=== PATIENT | male | born 1950 | race Caucasian/White ===

== ENCOUNTER → 2018-12-07 12:36 | Outpatient (CLI) | payer MEDICARE, BC ==
[2015-08-02 07:23] VITALS: BMI 30.7
[~2018-12-07 12:36] MED LIST: BAYER CHEWABLE81 MG PO; CARDURA2 MG PO; DELZICOL400 MG PO; DIFLUCAN50 MG PO; GEMFIBROZIL600 MG PO; GLUCOPHAGE500 MG PO; GLUCOTROL ER2.5 MG PO; K-TAB10 MEQ PO; LISINOPRIL10 MG GT; LISINOPRIL10 MG PO; LOPID600 MG PO; NEURONTIN 300300 MG PO; NORVASC5 MG PO; PENTASA 250 MG250 MG PO; PENTASA500 MG PO; PERCOCET 10/3251 TA1 PO; PLAVIX75 MG PO; PRAVACHOL20 MG PO; PROTONIX40 MG PO; TEFLARO 600 MG600 M1 IV; ULTRAM50 MG PO
--- NOTE | 2018-12-09 15:03 | EC ---
PATIENT:ROLLY NGUYEN DATE OF SERVICE: 12/07/18 SEX: M MEDICAL RECORD: [id number] DATE OF : 46 LOCATION:[facility] AGE OF PATIENT: 68 ADMISSION DATE: 12/07/18 REFERRING PHYSICIAN: INTERPRETING PHYSICIAN: MARCELA SIMMS MD ECHOCARDIOGRAM REPORT ECHO CHARGES 4 ECHO COMPLETE Date: 12/07/18 CLINICAL DIAGNOSIS: MCDONALD/FATIGUE/BRADYCARDIA H/O CAD ECHOCARDIOGRAPHIC MEASUREMENTS (adult normal given) AC root (d.<3.7cm) 3.4 cm LV Septum d (<1.2 cm> 1.6 cm Valve Excursion 2.1 cm LV Septum (systole) 2.2 cm Left Atria (s.<4.0cm> 4.3 cm LVPW d(<1.2cm) 1.4 cm RV (d.<2.3cm) 3.5 cm LVPW (sytole) 2.3 cm LV diastole(<5.6CM) 4.7 cm MV E-F(>70mm/sec) cm LV systole 2.2 cm LVOT Diameter 2.2 cm MV exc.(>10mm) cm Est.ejection fraction (50-75%) % DOPPLER: LVIT cm/sec A 49.0 cm/sec E 67.0 cm/sec LA cm/sec RVSP 25.3 mmHg LVOT 96.0 cm/sec AOP1/2T m/s Asc. Ao 123 cm/sec RVOT 48.0 cm/sec RA cm/sec PA 98.0 cm/sec AV Gradient Peak 6.1 mmHg AV Mean 2.8 mmHg AV Area 3.0 cm MV Gradient Peak 3.3 mmHg MV Mean 1.1 mmHg MV Area cm COMMENTS: OP - HC Aluminum Fabrication Supervisor: 1 ITZ PASCALOE Retail Advertising Executive: 1 Dr. Simms TAPE# PACS Pericardial Effusion N DATE OF SERVICE: 12/07/2018 ECHOCARDIOGRAM DATE OF SERVICE: 12/07/2018 FINDINGS: 1. Left ventricular chamber size is within normal limits. Left ventricular systolic function is normal. Overall ejection fraction estimated at 60%. 2. Left atrium, right atrium, and right ventricle chamber sizes are mildly ECHOCARDIOGRAM REPORT [id number] ROLLY NGUYEN dilated. Left atrium measures 4.3 cm. 3. Valvular structures have normal structure and motion. 4. Doppler interrogation reveals mild mitral regurgitation, trace tricuspid regurgitation, no other valvular insufficiency or stenosis. 5. No evidence of pericardial effusion or left ventricular thrombus. TRANSINT:[id number] Voice Confirmation ID: [id number] DOCUMENT ID: [id number] MARCELA SIMMS MD at 1503 CC: [id number] DICTATION DATE: 12/07/18 1557 FOUR SLIDE OPERATOR: 12/07/18 2307 DEP CLI 12/07/18 [place] [id number] [place] [id number]
== END | disposition home or self-care (01) ==
LOC: D.HCCARDIO 12:36
PROVIDERS: ATTEND Internal Medicine Interventional Cardiology
DX: R06.00 Dyspnea, unspecified (principal)

== ENCOUNTER → 2018-12-09 07:57 | Outpatient (CLI) | payer MEDICARE, BC ==
[2015-08-02 07:23] VITALS: BMI 30.7
--- NOTE | ~2018-12-09 | ST ---
PATIENT:ROLLY NGUYEN MEDICAL RECORD: [id number] SEX: M LOCATION:[facility] ORDER #: ADMISSION DATE: 12/09/18 AGE OF PATIENT: 68 REFERRING PHYSICIAN: INTERPRETING PHYSICIAN: MARCELA CONTRERAS MD DATE OF SERVICE: 12/09/2018 PROCEDURE: Nuclear stress test INDICATION: Angina and coronary artery disease, shortness of breath. The patient was exercised under standard Mateo protocol with 31 mCi of sestamibi injected at peak stress and 11 mCi used previously for rest images. FINDINGS: Gated SPECT reveals a preserved ejection fraction at 62% with good wall motioning and thickening and brightening throughout all segments. SPECT imaging Cardiolite was used as myocardial fusion agent. There is reversibility anteriorly. This includes the basal, mid, apical, anterior segments. The degree of reversibility is mild. The amount of myocardium involved is moderate. OVERALL IMPRESSION: This is an abnormal nuclear stress test. Reversible ischemia anteriorly. Gated SPECT reveals preserved ejection fraction greater than 60%. In this patient with ongoing symptomatology, the current scan does suggest the presence of hemodynamically significant coronary artery disease. We would proceed with coronary angiography as followup study. TRANSINT:[id number] Voice Confirmation ID: [id number] DOCUMENT ID: [id number] MARCELA CONTRERAS MD CC: MO DOHERTY [id number] DICTATION DATE: 12/09/18 1348 CHECKER CASHIER: 12/10/18 0409 DEP CLI 12/09/[address] [address]
== END | disposition home or self-care (01) ==
LOC: D.HCCARDIO 07:57
PROVIDERS: ATTEND Internal Medicine Interventional Cardiology
DX: I25.10 Atherosclerotic heart disease of native coronary artery without angina pectoris (principal); R06.09 Other forms of dyspnea; R53.83 Other fatigue

== ENCOUNTER 2018-12-23 10:13 | Outpatient (CLI) | payer MEDICARE, BC ==
[~2018-12-23] VITALS: Ht 177.8 cm; Wt 94.1 kg
--- NOTE | ~2018-12-23 | HEMODYNAMI ---
PATIENT:ROLLY NGUYEN MEDICAL RECORD: [id number] : 46 LOCATION:[facility] ADMISSION DATE: 12/23/18 Generatedon:12/23/201814:15 Patient name: ROLLY NGUYEN Patient #: [id number] SSN: DO B: 1950 Date of study: 12/23/2018 Page: Of Hemodynamic Procedure Report Patient Data Patient Demographics Procedure consent was obtained First Name: ROLLY Gender: Male Last Name: WENDY : 1950 Middle Initial: A Age: 68 year(s) Patient #: [id number] Race: Unknown Additional ID: [id number] Contact details Address: [address] [place] [address] State: [place] City: [facility] [place] Zip code: [address] Past Medical History Allergies: No known allergies Admission Admission Data Admission Date: 12/23/2018 Admission Time: 10:13 Height (in.): 70 BSA: 2.12 (m2) Height (cm.): 177.8 BMI: 29.84 (kg/m2) Weight (lbs.): 208 Weight (kg.): 94.35 Lab Results Lab Result Date: 12/23/2018 Lab Result Time: 0:00 Biochemistry Name Units Result Min Max BUN mg/dl 26 --(----)-* 7 18 Creatinine mg/dl 1.1 --(--*-)-- 0.6 1.3 CBC Name Units Result Min Max Hematocrit % 34.2 *-(----)-- 42 54 Hemoglobin g/dl 12.3 *-(----)-- 13.5 17.5 Procedure Procedure Types Cath Procedure Diagnostic Procedure [facility] w/Coronaries PCI Procedure Coronary Stent Coronary Stent Initial Procedure Description Procedure Date Procedure Date: 12/23/2018 Procedure Start Time: 14:00 Procedure End Time: 14:11 Procedure Staff Name Function Chad Simms MD Performing Physician Cyndi Mobley RT Monitor Morales Cavanaugh RT Scrub Angel Long RN Nurse Procedure Data Cath Procedure Fluoroscopy Diagnostic fluoroscopy Total fluoroscopy Time: 3.5 time: 3.5 min min Diagnostic fluoroscopy Total fluoroscopy dose: 618 dose: 618 mGy mGy Contrast Material Contrast Material Type Amount (ml) Isovue 300 67 Entry Location Entry Primary Successful Side Size Upsize Upsize Entry Closure Garcia ccessful Closure Location (Fr) 1 (Fr) 2 (Fr) Remarks Device Remarks Radial Right 6 Fr Mechanical artery Short Compression Estimated blood loss: 10 ml Diagnostic catheters Device Type Used For End Catheter Placement DIAGNOSTIC Sharon 110cm 5 Procedure Fr catheter ([id number]) Procedure Complications No complications Procedure Medications Medication Administration Route Dosage Oxygen etCO2 Nasal cannula 2 l/min Heparin Flush Bag added to field 2 bags (1000units/500ml NS) 0.9% NaCl I.V. 100 ml/hr Lidocaine 2% added to field 20 Radial Cocktail added to field 1 syringe (Verapomil 2mg/Nitro 400mcg/Heparin 1500units) Fentanyl I.V. 50 mcg Versed I.V. 1 mg Fentanyl I.V. 50 mcg Versed I.V. 1 mg Radial Cocktail I.A. 1 syringe (Verapomil 2mg/Nitro 400mcg/Heparin 1500units) Fentanyl I.V. 50 mcg Heparin Bolus I.V. 4000 units Integrilin (Bolus I.V. 8.5 ml 2mg/ml) Plavix P.O. 600 mg Hemodynamics Rest BSA: 2.12 (m2) HGB: 12.3 (g/dl) O2 Consumption: Estimated: 232.85 (ml/min) O2 Co nsumption indexed: Estimated:109.83 (ml/min/m) Heart Rate: 54 (bpm) Snapshots Pre Cath Intra NCS Post Cath Vital Signs Time Heart Resp SPO2 etCO2 NIBP (mmHg) Rhythm Pain Sedation Rate (ipm) (%) (mmHg) Status Level (bpm) 13:43:54 47 16 100 33.7 145/87(138) NSR 0 (11) 10(A) , No pain 13:48:08 55 16 95 29.2 153/80(127) NSR 0 (11) 10(A) , No pain 13:52:22 53 17 94 0.7 132/78(104) NSR 0 (11) 10(A) , No pain 13:57:13 50 17 96 0 125/73(112) NSR 0 (11) 10(A) , No pain 14:01:23 49 17 95 0 112/67(101) NSR 0 (11) 9(A) , No pain 14:05:29 55 17 90 0 116/67(92) NSR 0 (11) 9(A) , No pain 14:10:40 73 17 94 46.4 129/71(114) NSR 0 (11) 10(A) , No pain 14:12:41 63 17 94 44.2 131/71(109) NSR 0 (11) 10(A) , No pain Medications Time Medication Route Dose Verified Delivered Reason Not es Effectiveness by by 13:44:38 Oxygen etCO2 2 l/min Chad Ortiz Per physician Nasal Demi Long RN cannula 13:44:46 Heparin Flush added 2 bags Chad Ortiz used for Bag to Demi Long RN procedure (1000units/500ml field NS) 13:44:54 0.9% NaCl I.V. 100 Chad Ortiz Per physician ml/hr Demi Long RN 13:45:02 Lidocaine 2% added 20ml Chad Ortiz used for to vial Demi Long web site developer field 13:45:12 Radial Cocktail added 1 Chad Ortiz used for (Verapomil to syringe Demi Long RN procedure 2mg/Nitro field 400mcg/Heparin 1500units) 13:58:38 Fentanyl I.V. 50 mcg Chad Ortiz for sedation Demi Long RN 13:58:47 Versed I.V. 1 mg Chad Ortiz for sedation Demi Long RN 14:01:03 Fentanyl I.V. 50 mcg Chad Ortiz for sedation Demi Long RN 14:01:06 Versed I.V. 1 mg Chad Ortiz for sedation Demi Long RN 14:02:23 Radial Cocktail I.A. 1 Chad Bonilla for (Verapomil syringe Demi Simms MD vasodilation 2mg/Nitro 400mcg/Heparin 1500units) 14:05:18 Fentanyl I.V. 50 mcg Chad Ortiz for sedation Demi Long RN 14:08:37 Heparin Bolus I.V. 4000 Chad Ortiz for units Demi Long RN anticoagulation 14:08:48 Integrilin I.V. 8.5 ml Chad reed (Bolus 2mg/ml) Demi Long RN antiplatelet therapy 14:11:00 Plavix P.O. 600 mg Chad Long RN antiplatelet therapy Procedure Log Time Note 13:00:22 Signed procedure consent form obtained from patient. 13:00:23 Diagnostic Cath status Elective 13:00:24 Time tracking: Regular hours (M-F 7:00 - 5:00) 13:00:28 Plan of Care:Hemodynamics will remain stable., Cardiac rhythm will remain stable., Comfort level will be maintained., Respiratory function will remain adequate., Patient/ family verbilizes understanding of procedure., Procedure tolerated without complication., Recovers from procedure without complications.. 13:07:46 H&P Date Dictated: 12/01/2018 Within 30 days and on chart., H&P Addendum completed by physician on day of procedure. (MUST COMPLETE FOR ALL OUTPATIENTS). 13:08:17 Patient Weight : 208 lbs 13:08:45 Patient Height : 70 inches 13:20:15 Morales HOWELL(R) sent for patient. Start room use. 13:24:52 Patient allergic to No known allergies 13:35:43 Patient received from Pre/Post Procedure Room to CCL 2 Alert and oriented. Tansferred to table in Supine position. 13:35:44 Warm blankets applied, and sunita hugger turned on for patient comfort. 13:35:44 Correct patient and procedure confirmed by team. 13:35:45 ECG and BP/O2 sat monitors applied to patient. 13:42:40 Vital chart was started 13:44:38 Oxygen 2 l/min etCO2 Nasal cannula was administered by Angel Long RN; Per physician; 13:44:46 Heparin Flush Bag (1000units/500ml NS) 2 bags added to field was administered by Angel Long RN; used for procedure; 13:44:54 0.9% NaCl 100 ml/hr I.V. was administered by Angel Long RN; Per physician; 13:45:02 Lidocaine 2% 20ml vial added to field was administered by Angel Long RN; used for procedure; 13:45:12 Radial Cocktail (Verapomil 2mg/Nitro 400mcg/Heparin 1500units) 1 syringe added to field was administered by Angel Long RN; used for procedure; 13:45:53 Baseline sample Acquired. 13:45:55 Rhythm: sinus bradycardia 13:45:57 Full Disclosure recording started 13:45:57 Pre-procedure instructions explained to patient. 13:45:57 Pre-op teaching completed and patient verbalized understanding. 13:45:59 Family in patients room. 13:46:00 Patient NPO since Midnight. 13:46:01 Is patient on blood thinner?No 13:46:02 Patient diabetic? Yes. 13:46:03 If diabetic: On Metformin? Yes 13:46:05 If on Metformin: Last Dose? 12/21/2018 13:46:08 Previous problem with sedation/anesthesia? No ? 13:46:09 Snore? Yes 13:46:10 Sleep apnea? No 13:46:11 Deviated septum? No 13:46:12 Opens mouth fully? Yes 13:46:13 Sticks out tongue? Yes 13:46:14 Airway obstruction? No ? 13:46:16 Dentures? No ? 13:46:18 Pre procedure: right dorsailis pedis pulse 1+ Palpable, but thready & weak; easily obliterated 13:46:20 Modified Arron's test Ulnar < 7 seconds 13:46:22 Patient pain scale 0/10 ?. 13:46:27 IV patent on arrival in left antecubital with 0.9% NaCl at [facility]. 13:46:51 Lab Result : BUN 26 mg/dl 13:46:51 Lab Result : Creatinine 1.1 mg/dl 13:46:51 Lab Result : Hemoglobin 12.3 g/dl 13:46:51 Lab Result : Hematocrit 34.2 % 13:46:54 Lab results completed and on chart. 13:46:58 Right Radial & Right Groin area was prepped with chlora-prep and draped in sterile fashion 13:46:59 Alarms reviewed by R. N. 13:47:00 Sharps counted by scrub and verified by R.N. 13:47:06 Use device set Radial Dx or PCI 13:47:08 ACIST Syringe (58238) opened to sterile field. 13:47:09 Bag Decanter (2002S) opened to sterile field. 13:47:10 ACIST Hand Control (89596) opened to sterile field. 13:47:11 ACIST Manifold (39310) opened to sterile field. 13:47:11 Tegaderm 4 x 4 (1626W) opened to sterile field. 13:47:12 Medline Cath Pack (PSPH93323) opened to sterile field. 13:47:13 DIAGNOSTIC WIRE .035 260cm J wire (473117) opened to sterile field. 13:47:15 SHEATH 6FR Slender (18-8340) opened to sterile field. 13:47:17 MBrace Wrist Support ([id number]) opened to sterile field. 13:53:52 Zero performed for pressure channel P1 13:57:50 --------ALL STOP TIME OUT------ 13:57:50 Final Timeout: patient, procedure, and site verified with staff and physician. All members of the team are in agreement. 13:57:53 Right Radial & Right Groin site verified by team. 13:57:56 Maximum allowable Isovue 300 dose 300ml. Physician notified. (300ml for normal creatinines. For patients with creatinine of 1.7 or higher multiply weight(kg) x 5 divided by creatinine.) 13:58:00 Fire Safety Assessment: A--An alcohol-based skin anteseptic being used preoperatively., C--Open oxygen or nitrous oxide is being used., D--An ESU, laser, or fiber-optic light is being used. 13:58:02 Physical assessment completed. ASA score P 2 - A patient with mild systemic disease as per Chad Simms MD. 13:58:05 Sedation plan: IV Moderate Sedation Medication:Versed, Fentanyl 13:58:38 Fentanyl 50 mcg I.V. was administered by Angel Long RN; for sedation; 13:58:47 Versed 1 mg I.V. was administered by Angel Long RN; for sedation; 14:00:32 Procedure started. 14:00:40 Local anesthetic to right radial artery with Lidocaine 2% by Chad Simms MD.INITIAL ACCESS ONLY 14:00:56 A 6 Fr Short sheath was inserted into the Right Radial artery 14:01:03 Fentanyl 50 mcg I.V. was administered by Angel Long RN; for sedation; 14:01:06 Versed 1 mg I.V. was administered by Angel Long RN; for sedation; 14:01:57 A DIAGNOSTIC Sharon 110cm 5 Fr catheter (816932) was advanced over the wire and used for Procedure. 14:02:23 Radial Cocktail (Verapomil 2mg/Nitro 400mcg/Heparin 1500units) 1 syringe I.A. was administered by Chad Simms MD; for vasodilation; 14:02:45 LV gram done using SEE 14:02:48 Injector settings: Ml/sec: 7, Volume: 15, 14:03:10 EF : 55 % 14:04:20 RCA angiography performed. 14:04:22 Catheter exchanged over wire. 14:04:54 GUIDE 6FR XB 3.5 catheter ([id number]) opened to sterile field. 14:05:18 Fentanyl 50 mcg I.V. was administered by Angel Long RN; for sedation; 14:05:18 6 Fr XB 3.5 guide catheter was inserted over the wire 14:05:58 LCA angiography performed. 14:06:23 CHOICE PT Extra Support 182cm wire ([id number]) opened to sterile field. 14:06:24 INFLATOR Merit BasixCompak (YL5910) opened to sterile field. 14:07:09 CHOICE ES 182 wire advanced. 14:07:42 Wire advanced across lesion. 14:08:37 Heparin Bolus 4000 units I.V. was administered by Angel Long RN; for anticoagulation; 14:08:48 Integrilin (Bolus 2mg/ml) 8.5 ml I.V. was administered by Angel Long RN; for antiplatelet therapy; 14:08:55 Place stent Inflation Number: 1 A INTEGRITY RX 3.0 x 12 stent ([id number]) was prepped and advanced across the Mid LAD. The stent was deployed at 11 STEPHANIE for 0:10 (min:sec). 14:08:59 Stent catheter was removed intact over wire. 14:08:59 Wire removed. 14:09:00 Guide catheter removed. 14:09:13 Procedure ended.(Physican Out) 14:09:33 TR BAND Standard ([id number]) opened to sterile field. 14:09:42 Sheath removed intact; hemostasis achieved with Mechanical Compression to the Right Radial artery. 14:09:47 Fluoroscopy time 03.50 minutes. 14::50 Fluoroscopy dose: 618 mGy 14:09:50 Flurop Dose total: 618 14:09:53 Contrast amount:Isovue 300 67ml. 14:09:57 TR band inflated with 10cc of air. 14:10:00 Post-procedure physical assessment completed. ASA score P 2 - A patient with mild systemic disease as per Chad Simms MD. 14:10:02 Post procedure rhythm: sinus rhythm 14:10:04 Estimated blood loss: 10 ml 14:10:05 Post procedure instruction explained to patient.Patient verbalizes understanding. 14:10:05 Patient needs reinforcement of post procedure teaching. 14:10:20 Procedure type changed to Cath procedure, Diagnostic procedure, LHC, LHC w/Coronaries, PCI procedure, Coronary Stent, Coronary Stent Initial 14:11:00 Plavix 600 mg P.O. was administered by Angel Long RN; for antiplatelet therapy; 14:11:07 Procedure and supply charges have been captured, reviewed, submitted and are correct. 14:11:09 Procedure Complication : No complications 14:11:12 Vital chart was stopped 14:11:12 See physician's report for complete and final results. 14:11:15 Report given to Pre/Post Procedure Room. 14:11:17 Patient transfered to Pre/Post Procedure Room with Bed. 14:11:18 Procedure ended. 14:11:18 Full Disclosure recording stopped 14:11:23 End room use (Document Last) Intervention Summary Intervention Notes Time ActionType Lesion and Equipment Action# Pressure Duration Attributes Used 14:08:55 Place stent Mid LAD INTEGRITY RX 1 11 00:10 3.0 x 12 stent ([id number]) Device Usage Item Name Manufacture Quantity Catalog Number Hospital Part Current [facility] Lot# / Charge Number Stock Stock Serial# Code ACIST Acist 1 63349 524480 418673 875832 20 Syringe Medical (82355) Systems Inc Bag Decanter Microtek 1 2001S 810417 37134 140672 5 (2001S) Medical Inc. ACIST Hand Acist 1 00429 890033 663564 785513 5 Control Medical (83199) Systems Inc ACIST Acist 1 22542 299767 695844 971973 5 Manifold Medical (17047) Systems Inc Tegaderm 4 x 3M 1 1626W 366280 444985 545154 5 4 (1626W) Medline Cath Medline 1 [id number] 040133 67419 703648 5 Pack ([id number]) DIAGNOSTIC St Eric 1 339961 267453 190336 093730 30 WIRE .035 260cm J wire (744772) SHEATH 6FR Terumo 1 [id number] 569668 170434 077676 5 Slender (80-1060) MBrace Wrist Advanced 1 140-0250-00 870280 20041 109850 5 Support Vascular (418461559) Dynamics DIAGNOSTIC Terumo 1 40-5013 267072 075056 362764 5 Sharon 110cm 5 Fr catheter (861696) GUIDE 6FR XB Cardinal 1 [id number] 279420 367071 985242 2 3.5 catheter Health (70785551) CHOICE PT Stratton 1 [id number] 631821 297374 179772 5 Extra Scientific Support 182cm wire ([id number]) INFLATOR Merit 1 WL0471 486449 492258 889845 15 [facility] Medical BasixCompak (ZX7174) INTEGRITY RX Medtronic 1 [id number] 372405 704584 971193 5 [id number] 3.0 x 12 stent ([id number]) TR BAND Terumo 1 [id number] 199485 471468 475320 40 Standard ([id number]) Signature Audit [place] Stage Time Signature Unsigned Intra-Procedure 12/23/2018 Cyndi Mobley 2:15:40 PM RT(R) Signatures Monitor : Cyndi Mobley Signature : RT Date : Time : [facility] [address] [place] [address]
[2018-12-23 10:45] VITALS: BP 133/66; Ht 177.8 cm; Wt 94.1 kg
[2018-12-23 11:00] LABS: CALCIUM 9.1 mg/dL (8.5-10.1); CARBON DIOXIDE 28.1 mmol/L (21.0-32.0); CREATININE - SERUM 1.1 mg/dL (0.6-1.3); POTASSIUM - SERUM 4.1 mmol/L (3.5-5.1)
[2018-12-23 12:29] LABS: BASOPHILS 0.3 % (0-2); EOSINOPHILS 4.9 % (0-7); HEMATOCRIT 34.2 % (42.0-54.0); HEMOGLOBIN 12.3 g/dL (13.5-17.5); IMMATURE GRANULOCYTES 0.3 % (0-5); LYMPHOCYTES 29.9 % (15-50); MCH 34.5 pg (26.0-34.0); MCV 95.8 fL (80.0-100.0); MEAN PLATELET VOLUME 11.1 fL (7.4-10.4); MONOCYTES 10.8 % (2-11); NEUTROPHILS 53.8 % (40-80); PLATELET COUNT 277 10x3/uL (130-400); RBC 3.57 10x6/uL (4.20-6.10); RDW 14.7 % (11.5-14.5); WBC 5.7 10x3/uL (4.8-10.8)
--- NOTE | 2018-12-23 14:30 | NUR ---
PT RECEIVED VIA STRETCHER FROM BEREAVEMENT COUNSELOR FOR RECOVERY. PT DROWSY BUT AWAKE, TR BAND AND IMMOBILIZER TO R WRIST, DRESSING CDI NO BLEEDING OR HEMATOMA NOTED. CAP REFILL BRISK. HR NSR RATE 60, BP 127/66, 02 SAT 96 PLACED ON 2L O2 VIA NC. PT DENIES PAIN OR DISCOMFORT. CALL LIGHT IN REACH, AT BEDSIDE. IV PATENT INFUSING VIA ORDERS.
[2018-12-23] MEDS ORDERED: PLAVIX75 MG PO (14:36)
[2018-12-23] MEDS ORDERED: BAYER CHEWABLE81 MG PO (14:36)
--- NOTE | 2018-12-23 14:45 | NUR ---
PT RESTING COMFORTABLY, TR BAND IN PLACE, DRESSING CDI NO BLEEDING OR HEMATOMA NOTED. ARM PINK AND WARM, CAP REFILL BRISK. VSS. PT DENIES PAIN OR NEEDS. CALL LIGHT IN REACH, AT BEDSIDE.
--- NOTE | 2018-12-23 15:15 | NUR ---
PT RESTING COMFORTABLY, DENIES PAIN OR NEEDS. TR BAND IN PLACE, DRESSING CDI NO BLEEDING OR SWELLING NOTED. PT DENIES NEEDS. CALL LIGHT IN REACH. AT BEDSIDE
--- NOTE | 2018-12-23 15:40 | NUR ---
HOB ELEVATED, SANDWICH AND DRINK SERVED. R WRIST DRESSING REMAINS CDI NO BLEEDING OR SWELLING NOTED. VSS, CALL LIGHT IN REACH. DENIES PAIN OR ANY OTHER NEEDS AT THIS TIME
--- NOTE | 2018-12-23 16:14 | NUR ---
PT SITTING UP, DENIES PAIN OR NEEDS. TR BAND IN PLACE DRESSING CDI NO BLEEDING OR SWELLING NOTED. VSS. O2 REMOVED. CALL LIGHT IN REACH, AT BEDSIDE.
--- NOTE | 2018-12-23 16:47 | NUR ---
PT RESTING COMFORTABLY, TR BAND IN PLACE, DRESSING CDI NO BLEEDING OR SWELLING NOTED. VSS. CALL LIGHT IN REACH. DENIES PAIN OR NEEDS AT THIS TIME
--- NOTE | 2018-12-23 17:17 | NUR ---
3 CC AIR REMOVED FROM TR BAND. NO BLEEDING OR SWELLING NOTED. PT DENIES AND NEEDS. VSS. CALL LIGHT IN REACH
--- NOTE | 2018-12-23 17:41 | NUR ---
3 ADD'L CC OF AIR REMOVED FROM TR BAND. NO BLEEDING OR SWELLING NOTED. ARM PINK WARM, CAP REFILL BRISK. DENIES PAIN OR NEEDS. AT BEDSIDE.
--- NOTE | 2018-12-23 18:01 | NUR ---
2 MORE CC AIR REMOVED FROM TR BAND, IV REMOVED W CATH INTACT, MONITORS REMOVED. PT UP TO DRESS FOR DISCHARGE.
--- NOTE | 2018-12-23 18:16 | NUR ---
PT AMBULATED TO , VOIDING W/O DIFFICULITY. TR BAND AND REMAINING AIR REMOVED, NO BLEEDING OR SWELLING NOTED. 2X2 AND TEGADREM DRESSING APPLIED. IMMOBILIZER RE APPLIED. PT DISCHARGED VIA WC TO PRIVATE VEHICLE WITH ALL BELONGINGS.
--- NOTE | 2018-12-28 14:38 | OP ---
PATIENT NAME: ROLLY NGUYEN MEDICAL RECORD: [id number] :46 LOCATION:[facility] ADMISSION DATE: SURGEON: MARCELA CONTRERAS MD DATE OF OPERATION: 12/23/2018 PROCEDURES: 1. PTCA stent LAD. 2. Left heart catheterization. 3. Selective coronary angiography. 4. Left ventriculogram. INDICATION: Angina and coronary artery disease. PROCEDURE IN DETAIL: After informed consent was obtained and after a detailed description of risks, benefits as well as alternative therapies, the patient elected to proceed with angiogram and angioplasty. FINDINGS: Left ventriculogram was performed in a standard 30-degree SEE view, reveals good cardiac wall motion throughout all segments. Overall ejection fraction estimated 60%. SELECTIVE CORONARY ANGIOGRAPHY: 1. Left main has no significant angiographic disease. 2. Left anterior descending has 75% stenosis in the mid vessel. 3. Left circumflex has mild irregularities, but no flow-limiting stenosis. 4. Right coronary has mild irregularities, but no flow-limiting stenosis. PTCA STENT OF THE LAD: The stent used was a 3.0 x 12 mm Integrity. Result was 0% residual stenosis. OVERALL IMPRESSION: Successful PTCA stent of the LAD going from 75% initial stenosis to 0% residual. TRANSINT:[id number] Voice Confirmation ID: [id number] DOCUMENT ID: [id number] MARCELA CONTRERAS MD at 1438 CC: [id number] DICTATION DATE: 12/23/18 1414 OPTICAL GOODS DRILLING MACHINE OPERATOR: 12/23/18 1522 DEP CLI 12/23/18 [place] [id number]
== END 2018-12-23 18:15 | disposition home or self-care (01) ==
LOC: D.CATH 10:13
PROVIDERS: ATTEND Internal Medicine Interventional Cardiology
DX: I25.119 Atherosclerotic heart disease of native coronary artery with unspecified angina pectoris (principal); Z01.812 Encounter for preprocedural laboratory examination

== ENCOUNTER → 2019-09-20 09:15 | Outpatient (CLI) | payer MEDICARE, BC ==
[2018-12-23 10:45] VITALS: BMI 29.7
== END | disposition home or self-care (01) ==
LOC: D.CT 09:15
PROVIDERS: ATTEND Surgery
DX: K40.90 Unilateral inguinal hernia, without obstruction or gangrene, not specified as recurrent (principal); T83.490D Other mechanical complication of implanted penile prosthesis, subsequent encounter

== ENCOUNTER 2019-10-28 21:42 | Inpatient (IN) | payer MEDICARE, BC ==
[~2019-10-28] VITALS: Ht 177.8 cm; Wt 93.0 kg
[2019-10-28] MEDS ORDERED: LISINOPRIL10 MG PO (22:12)
[2019-10-28 22:50] LABS: BASOPHILS 0 % (0-2); EOSINOPHILS 0.5 % (0-7); HEMOGLOBIN 10.6 g/dL (13.5-17.5); IMMATURE GRANULOCYTES 0.2 % (0-5); LYMPHOCYTES 16.5 % (15-50); MCH 48.8 pg (26.0-34.0); MCHC 47.1 g/dL (31.0-37.0); MCV 103.7 fL (80.0-100.0); MEAN PLATELET VOLUME 10.1 fL (7.4-10.4); MONOCYTES 1.9 % (2-11); NEUTROPHILS 80.9 % (40-80); PLATELET COUNT 314 10x3/uL (130-400); RBC 2.17 10x6/uL (4.20-6.10); RDW 17.4 % (11.5-14.5); WBC 6.4 10x3/uL (4.8-10.8)
[2019-10-28 22:51] LABS: HEMATOCRIT 32.5 % (42.0-54.0)
[2019-10-28 22:58] LABS: ANION GAP 13.1 mmol/L (8-16); CALCIUM 8.9 mg/dL (8.5-10.1); CARBON DIOXIDE 26.6 mmol/L (21.0-32.0); CREATININE - SERUM 1.5 mg/dL (0.6-1.3); POTASSIUM - SERUM 3.7 mmol/L (3.5-5.1)
--- NOTE | 2019-10-28 23:03 | NUR ---
PT LEFT ED VIA STRETCHER FOR CT.
[2019-10-28 23:05] LABS: ALBUMIN 3.1 g/dL (3.4-5.0); BILIRUBIN - TOTAL 0.58 mg/dL (0.2-1.3); PROTEIN - SERUM 7.3 g/dL (6.4-8.2)
--- NOTE | 2019-10-28 23:05 | NUR ---
URINE SPECIMEN SENT TO LAB
[2019-10-28 23:12] LABS: GLUCOSE NEGATIVE (NEGATIVE); KETONE NEGATIVE (NEGATIVE); NITRITE NEGATIVE (NEGATIVE)
[2019-10-28 23:13] LABS: BILIRUBIN NEGATIVE (NEGATIVE); UROBILINOGEN NORMAL (NORMAL)
--- NOTE | 2019-10-28 23:19 | NUR ---
PT RETURNED FROM CT VIA STRETCHER.
--- NOTE | 2019-10-29 00:30 | NUR ---
PT RESTING ON BED. PT DENIES PAIN WHEN IN A CERTAIN POSITION. PT REPORTS INCREASED PAIN WITH MOVEMENT.
[2019-10-29] MEDS ORDERED: FOLIC ACID1 MG PO (02:03)
[2019-10-29] MEDS ORDERED: METHOTREXATE2.5 MG PO (02:04)
[2019-10-29] MEDS ORDERED: PREDNISONE1 MG PO (02:05)
[2019-10-29] MEDS ORDERED: VITAMIN D10000 UNI1 PO (02:07)
--- NOTE | 2019-10-29 02:57 | NUR ---
RECEIVED TO ROOM FROM ER. ALERT,ORIENTED. NO COMPLAINTS AT PRESENT. IV TO RAC INTACT WITHOUT REDNESS OR EDEMA NOTED. ORIENTED TO ROOM.CL IN REACH
[2019-10-29 03:00] VITALS: BP 96/56; BMI 29.4
[2019-10-29 04:00] VITALS: BP 96/56
--- NOTE | 2019-10-29 07:21 | NUR ---
PT RESTING IN BED WITH EYES CLOSED. RESPIRATIONS ARE EVEN AND UNLABORED. PT IS EASILY AROUSED WITH VERBAL STIMULATION. PT IS AAO X 4 UPON AROUSAL. T REPORTS LSIGHT PAIN TO HERNIATED AREA TO LLQ. BS HYPOACTIVE X 4. PT DENIES PRESENCE OF N/V/DYSPNEA AT THIS TIME. PT SPOUSE AT BEDSIDE. BED IS IN THE LOWEST POSITION. CALL LIGHT AND BEDSIDE TABLE ARE WITHIN REACH. SIDE RAILS X 2. PT DENIES FURTHER NEEDS. WILL CONT TO MONITOR.
--- NOTE | 2019-10-29 07:40 | NUR ---
DR OLIVEIRA CALLED TO NOTIFY OF SURGERY CANCELLATION DUE TO PT NEEDING BOWEL PREP. TELEPHONE ORDERS RECD ARE TO START GOLYTELY NOW AND CAN HAVE CLEAR LIQUID DIET. PT TO BE NPO AFTER MIDNIGHT AND HAVE PLANNED PROCEDURE ON 10/30/2019. MANAGER READING NOTIFIED OF CANCELLED SURGERY. WILL PLACE ORDERS.
[2019-10-29 08:12] VITALS: BP 106/53
[2019-10-29 12:02] VITALS: BP 121/56
[2019-10-29 16:19] VITALS: BP 119/57
[2019-10-29 20:00] VITALS: BP 114/48
--- NOTE | 2019-10-29 20:00 | NUR ---
LYING QUEITLY WITH NO COMPLAINTS VOCIED. RESP EVEN AND UNALBORED. NO DISTESS NOTED. CL IN REACH
[2019-10-30] VITALS: BP 117/59
--- NOTE | 2019-10-30 01:28 | NUR ---
TEMP VITAL PLACED BY THIS NURSE IN ERROR, DISREGARD.
--- NOTE | 2019-10-30 02:07 | NUR ---
I have reviewed this patient and I concur with the Shift Assessment completed by the Licensed Practical Nurse today this shift.
--- NOTE | 2019-10-30 02:09 | NUR ---
I have reviewed this patient and I concur with the Shift Assessment completed by the Licensed Practical Nurse today this shift.
[2019-10-30 04:00] VITALS: BP 102/61
[2019-10-30 08:23] VITALS: BP 128/57
[2019-10-30 12:18] VITALS: BP 125/81
[2019-10-30 12:33] VITALS: Ht 177.8 cm; Wt 93.0 kg
[2019-10-30] MEDS ORDERED: LEVOFLOXACIN500 MG PO (13:58)
[2019-10-30] MEDS ORDERED: FLAGYL500 MG PO (13:59)
--- NOTE | 2019-10-30 15:15 | MORECARE ---
CASE MANAGEMENT DISCHARGE SUMMARY PATIENT: ROLLY NGUYEN UNIT: [id number] ADM DATE: 10/29/19 AGE: 69 : 48 SEX: M ROOM/BED: D.2205 AUTHOR: MARY COLON PHYSICIAN: REFERRING PHYSICIAN: ANATOLIY OLIVEIRA MD DATE OF SERVICE: 10/30/19 Discharge Plan Patient Name: ROLLY NGUYEN [facility] 1950 Planned Disposition: Home or Self Care Anticipated Discharge Date: Discharge Date: Expected LOS: Initial Reviewer: [email or web address] Initial Review Date: 10/29/2019 Generated: 10/30/19 4:14 pm DCPIA - Discharge Planning Initial Assessment Updated by [email or web address]: Vicky Rasmussen on 10/30/19 3:10 pm * Is the patient Alert and Oriented? Yes * How many steps to enter\exit or inside your home? * PCP NICARAGUAN * Pharmacy [facility] * Preadmission Environment Home with Family * ADLs Independent * Equipment None * List name and contact numbers for known caregivers / representatives who currently or will assist patient after discharge: JACK * Verbal permission to speak to the caregivers and representatives has been obtained from the patient. Yes * Community resources currently utilized None * Additional services required to return to the preadmission environment? No * Can the patient safely return to the preadmission environment? Yes * Has this patient been hospitalized within the prior 30 days at any hospital? No Patient Name: ROLLY NGUYEN Page 17955 at 1515 All edits/amendments must be made on the electronic document DICTATION DATE: 10/30/19 1514 DATA OPERATIONS DIRECTOR: FARHANA 10/30/19 1514 RPT#: [id number] DC DATE: STATUS: ADM IN [facility] [address] [place] [address] END OF REPORT
--- NOTE | 2019-10-30 15:25 | MORECARE ---
CASE MANAGEMENT DISCHARGE SUMMARY PATIENT: ROLLY NGUYEN UNIT: [id number] ADM DATE: 10/29/19 AGE: 69 : 48 SEX: M ROOM/BED: D.2205 AUTHOR: DARLENEDOC PHYSICIAN: REFERRING PHYSICIAN: ANATOLIY OLIVEIRA MD DATE OF SERVICE: 10/30/19 Discharge Plan Patient Name: ROLLY NGUYEN Facility: [facility]:[place] : 1950 Planned Disposition: Home or Self Care Anticipated Discharge Date: Discharge Date: Expected LOS: Initial Reviewer: [email or web address] Initial Review Date: 10/29/2019 Generated: 10/30/19 4:25 pm Comments DCP- Discharge Planning Updated by [email or web address]: Vicky Rasmussen on 10/30/19 2:[address] Patient Name: ROLLY NGUYEN Admission Status: ER Accout number: [id number] Admission Date: 10-29-2019 : 1950 Admission Diagnosis: Attending: ANATOLIY OLIVEIRA Current LOS: 1 Anticipated DC Date: Planned Disposition: Home or Self Care Primary Insurance: MEDICARE A & B Discharge Planning Comments: CM met with patient to complete initial dc planning assessment. CM educated patient on the CM role and verbal consent given by patient to complete assessment. Patient lives at home with his spouse where he is independent with his care. At discharge patient plans to return home and feels this is a safe discharge. CM discussed availability of home health, rehab services, and medical equipment. Patient denied known discharge needs at this time. CM will continue to follow and will assist as needed with dc plans/needs. Curtain Worker: Vicky Rasmussen DCPIA - Discharge Planning Initial Assessment Updated by [email or web address]: Vicky Rasmussen on 10/30/19 3:10 pm * Is the patient Alert and Oriented? Yes * How many steps to enter\exit or inside your home? * PCP LITHUANIAN * Pharmacy [facility] * Preadmission Environment Home with Family * ADLs Independent * Equipment None * List name and contact numbers for known caregivers / representatives who currently or will assist patient after discharge: JACK * Verbal permission to speak to the caregivers and representatives has been obtained from the patient. Yes * Community resources currently utilized None * Additional services required to return to the preadmission environment? No * Can the patient safely return to the preadmission environment? Yes * Has this patient been hospitalized within the prior 30 days at any hospital? No Last DP export: 10/30/19 2:15 p Patient Name: ROLLY NGUYEN Page 39726 at 1525 All edits/amendments must be made on the electronic document DICTATION DATE: 10/30/191524 MEAT BONER AND SLICER: FARHANA 10/30/191524 RPT#: [id number] DC DATE: STATUS: ADM IN [address] [place] [address] END OF REPORT
--- NOTE | 2019-10-30 15:30 | NUR ---
PATIENT RECIEVED DISCHARGE INSTRUCTIONS. VERBALIZED UNDERSTANDING. NO QUESTIONS AT THIS TIME. EXPLAINED MEDS ARE SENT TO [facility] [place]. VERBALIZED UNDERSTANDING. IV REMOVED WITH CATH TIP INTACT. CALL LIGHT WITHIN REACH.
--- NOTE | 2019-10-30 15:48 | NUR ---
PATIENT ESCORTED DOWN TO PRIVATE VEHICLE WITH PERSONAL BELONGINGS AT THIS TIME.
--- NOTE | 2019-10-31 12:17 | MORECARE ---
CASE MANAGEMENT DISCHARGE SUMMARY PATIENT: ROLLY NGUYEN UNIT: [id number] ADM DATE: 10/29/19 AGE: 69 : 48 SEX: M ROOM/BED: D.2205 AUTHOR: DARLENEDOC PHYSICIAN: REFERRING PHYSICIAN: ANATOLIY OLIVEIRA MD DATE OF SERVICE: 10/31/19 Discharge Plan Patient Name: ROLLY NGUYEN Facility: [facility]:[place] : 1950 Planned Disposition: Home or Self Care Anticipated Discharge Date: Discharge Date: 10/30/2019 Expected LOS: 0 Initial Reviewer: [email or web address] Initial Review Date: 10/29/2019 Generated: 10/31/19 1:16 pm Comments DCP- Discharge Planning Updated by [email or web address]: Vicky Rasmussen on 10/30/19 2:[address] Patient Name: ROLLY NGUYEN Admission Status: ER Accout number: [id number] Admission Date: 10-29-2019 : 1950 Admission Diagnosis: Attending: ANATOLIY OLIVEIRA Current LOS: 1 Anticipated DC Date: Planned Disposition: Home or Self Care Primary Insurance: MEDICARE A & B Discharge Planning Comments: CM met with patient to complete initial dc planning assessment. CM educated patient on the CM role and verbal consent given by patient to complete assessment. Patient lives at home with his spouse where he is independent with his care. At discharge patient plans to return home and feels this is a safe discharge. CM discussed availability of home health, rehab services, and medical equipment. Patient denied known discharge needs at this time. CM will continue to follow and will assist as needed with dc plans/needs. Surveillance Systems Engineer: Vicky Rasmussen DCPIA - Discharge Planning Initial Assessment Updated by [id number]: Vicky Rasmussen on 10/30/19 3:10 pm * Is the patient Alert and Oriented? Yes * How many steps to enter\exit or inside your home? * PCP UZBEK * Pharmacy [facility] * Preadmission Environment Home with Family * ADLs Independent * Equipment None * List name and contact numbers for known caregivers / representatives who currently or will assist patient after discharge: JACK * Verbal permission to speak to the caregivers and representatives has been obtained from the patient. Yes * Community resources currently utilized None * Additional services required to return to the preadmission environment? No * Can the patient safely return to the preadmission environment? Yes * Has this patient been hospitalized within the prior 30 days at any hospital? No Last DP export: 10/30/19 2:25 p Patient Name: ROLLY NGUYEN Page 82487 at 1217 All edits/amendments must be made on the electronic document DICTATION DATE: 10/31/191215 RIDING SILKS CUSTODIAN: FARHANA 10/31/19 1216 RPT#: [id number] DC DATE:10/30/19 STATUS: DIS IN [facility] [address] [place] [address] END OF REPORT
== END 2019-10-30 15:49 | disposition home or self-care (01) | DRG 395 ==
LOC: D.ER 21:42 → D.MS 10-29 00:21
PROVIDERS: Emergency Medicine; ADMIT Surgery; ATTEND Surgery
DX: K63.89 Other specified diseases of intestine (principal); K40.90 Unilateral inguinal hernia, without obstruction or gangrene, not specified as recurrent; E11.9 Type 2 diabetes mellitus without complications; I10 Essential (primary) hypertension; K21.9 Gastro-esophageal reflux disease without esophagitis

== ENCOUNTER 2019-11-29 08:00 | Outpatient (CLI) | payer MEDICARE, BC ==
[2019-10-30 12:33] VITALS: Wt 93.0 kg
[~2019-11-29 08:00] MED LIST changes: +FLAGYL500 MG PO; +FOLIC ACID1 MG PO; +LEVOFLOXACIN500 MG PO; +METHOTREXATE2.5 MG PO; +PREDNISONE1 MG PO; +VITAMIN D10000 UNI1 PO
[2019-11-29 10:24] LABS: BASOPHILS 0 % (0-2); HEMATOCRIT 32.6 % (42.0-54.0); HEMOGLOBIN 11.5 g/dL (13.5-17.5); IMMATURE GRANULOCYTES 0.6 % (0-5); LYMPHOCYTES 26.3 % (15-50); MCH 35.2 pg (26.0-34.0); MCHC 35.3 g/dL (31.0-37.0); MCV 99.7 fL (80.0-100.0); MEAN PLATELET VOLUME 9.7 fL (7.4-10.4); MONOCYTES 17.1 % (2-11); RBC 3.27 10x6/uL (4.20-6.10); RDW 14.5 % (11.5-14.5); WBC 3.2 10x3/uL (4.8-10.8)
[2019-11-29 10:29] LABS: ANION GAP 10.7 mmol/L (8-16); CALCIUM 8.7 mg/dL (8.5-10.1); CARBON DIOXIDE 29.1 mmol/L (21.0-32.0); CREATININE - SERUM 1.2 mg/dL (0.6-1.3); POTASSIUM - SERUM 3.8 mmol/L (3.5-5.1)
[2019-11-29 10:37] LABS: PLATELET COUNT 206 10x3/uL (130-400)
== END 2019-11-29 08:01 | disposition home or self-care (01) ==
LOC: D.OPS 08:00 → EDSTATUS 12-01 07:30 → D.PAN 12-01 07:30 → D.OPS 12-01 08:20
PROVIDERS: ATTEND Surgery
DX: K40.41 Unilateral inguinal hernia, with gangrene, recurrent (principal); I10 Essential (primary) hypertension; I25.119 Atherosclerotic heart disease of native coronary artery with unspecified angina pectoris

== ENCOUNTER 2020-01-05 05:28 | Day surgery (SDC) | payer MEDICARE, BC ==
[~2020-01-05] VITALS: Ht 177.8 cm; Wt 93.2 kg
[2020-01-05 06:17] LABS: ANION GAP 11.4 mmol/L (8-16); CALCIUM 8.8 mg/dL (8.5-10.1); CARBON DIOXIDE 26.4 mmol/L (21.0-32.0); CREATININE - SERUM 1.1 mg/dL (0.6-1.3); POTASSIUM - SERUM 3.8 mmol/L (3.5-5.1)
[2020-01-05 06:27] VITALS: BP 128/73; Ht 177.8 cm; Wt 93.2 kg
[2020-01-05 07:24] LABS: HEMATOCRIT 34.1 % (42.0-54.0); HEMOGLOBIN 11.6 g/dL (13.5-17.5); MCH 34.2 pg (26.0-34.0); MCV 100.6 fL (80.0-100.0); MEAN PLATELET VOLUME 10.5 fL (7.4-10.4); RBC 3.39 10x6/uL (4.20-6.10); RDW 15.2 % (11.5-14.5); WBC 5.2 10x3/uL (4.8-10.8)
[2020-01-05 07:26] LABS: PLATELET COUNT 258 10x3/uL (130-400)
[2020-01-05] MEDS ORDERED: HYDROCODON-ACE1 EA10 PO (08:54)
--- NOTE | 2020-01-05 09:17 | NUR ---
ICE APPLIED TO INCISION SITE FOR DISCOMFORT. REPOSITIONED PT UP IN BED.
--- NOTE | 2020-01-05 10:06 | NUR ---
FULL LIQUID TRAY TO ROOM.
[2020-01-05 10:47] LABS: EOSINOPHILS 9 % (0-7); LYMPHOCYTES 24 % (15-50); MONOCYTES 6 % (2-11); NEUTROPHILS 61 % (40-80); PLATELET ESTIMATE NORMAL
[2020-01-05 10:48] LABS: ROULEAUX OCC
--- NOTE | 2020-01-05 11:20 | NUR ---
1030-TOLERATED TRAY. VSS. NO COMPLAINTS. PT IS UNABLE TO VOID AT THIS TIME
--- NOTE | 2020-01-05 11:21 | NUR ---
1115-NO CHANGES.VSS. CONTINUE TO WAIT ON PT TO VOID FOR DISCHARGE CRITERIA TO BE MET. ABD SOFT, NON DISTENDED. IV WITH FLUIDS AT KVO. DRINKING ICE WATER. DRESSING CDI
--- NOTE | 2020-01-05 11:34 | NUR ---
1125-ASSISTED PT TO RESTROOM. SITTING ON TOILET. CL IN EASY REACH.VSS.
--- NOTE | 2020-01-05 13:39 | NUR ---
1150-DISCHARGE CRITERIA MET.REMOVED IV WITH CATH INTACT, DISPOSED INTO SHARPS,COVERED SITE WITH GUAZE,SECURED WITH MEDIPORE TAPE. REVIEWED POST OPERATIVE INSTRUCTIONS AND TO CONTACT DR. NICE'S OFFICE WEDNESDAY TO CONFIRM 2-3 WK FOLLOW UP. VERBALIZED UNDERSTANDING.
--- NOTE | 2020-01-05 13:44 | NUR ---
1200-ESCORTED OUT VIA W/C WITH SPOUSE AWAITING TO DRIVE HOME
--- NOTE | 2020-01-09 10:39 | OP ---
PATIENT NAME: ROLLY NGUYEN MEDICAL RECORD: [id number] :[birth year] LOCATION:D[facility] ADMISSION DATE: SURGEON: GANESH NICE MD DATE OF OPERATION: 01/05/2020 PREOPERATIVE DIAGNOSES: 1. Left inguinal hernia. 2. Coronary artery disease. 3. Hypertension. 4. Diabetes mellitus. 5. Hypercholesterolemia. POSTOPERATIVE DIAGNOSES: 1. Left inguinal hernia. 2. Coronary artery disease. 3. Hypertension. 4. Diabetes mellitus. 5. Hypercholesterolemia. PROCEDURE: Left inguinal hernia repair with large PHS mesh. SURGEON: Ganesh Nice MD REPORT OF PROCEDURE: The patient's abdomen was prepped and draped in sterile fashion. An oblique incision was made over the left inguinal ligament. Electrocautery was used to dissect through the subcutaneous tissues to the external oblique fascia. We opened up this fascia with electrocautery and entered the inguinal canal. The spermatic cord was elevated and the patient's testicle had to be eviscerated through this opening. The patient had a very large inguinal hernia defect, which appeared to be indirect in nature. I was able to eventually dissect this hernia sac away from the spermatic cord and pushed this hernia sac back down into the abdominal cavity. The ilioinguinal nerve was found and high ligated. I then placed a large PHS mesh through the hernia defect and sutured this down on all sides using multiple interrupted 0 Vicryls. We irrigated out the wound with normal saline and assured there was no sign of any bleeding. The external oblique fascia was then closed with running 2-0 Vicryl, Chanda's was closed with interrupted 3-0 Vicryl and the skin was closed with running subcutaneous 5-0 Monocryl. A 10 mL of 0.25% Marcaine with epinephrine was infused into the surrounding tissues and the wound was dressed appropriately. COMPLICATIONS: None. CONDITION: Stable. ANESTHESIA: General endotracheal and local. BLOOD LOSS: Minimal. TRANSINT:[id number] Voice Confirmation ID: [id number] DOCUMENT ID: [id number] OPERATIVE REPORT [id number] WENDYROLLY GANESH PRUETT MD at 1039 CC: MO DOHERTY [id number] DICTATION DATE: 01/05/20 09 CERTIFIED ALCOHOL AND DRUG COUNSELOR: 01/05/20 1110 [facility] 01/05/20 [facility] [address] [facility] [address]
== END 2020-01-05 12:00 | disposition home or self-care (01) ==
LOC: D.OPS 05:28
PROVIDERS: ATTEND Surgery
DX: K40.90 Unilateral inguinal hernia, without obstruction or gangrene, not specified as recurrent (principal); I25.10 Atherosclerotic heart disease of native coronary artery without angina pectoris; I10 Essential (primary) hypertension; E11.9 Type 2 diabetes mellitus without complications; E78.00 Pure hypercholesterolemia, unspecified; T83.9XXA Unspecified complication of genitourinary prosthetic device, implant and graft, initial encounter; Z79.84 Long term (current) use of oral hypoglycemic drugs